=== PATIENT | female | born 1955 | race Caucasian/White ===

== ENCOUNTER 2021-02-02 08:03 | Day surgery (SDC) | payer OTHER, MEDICARE ==
[~2021-02-02 08:03] MED LIST: Lidocaine 1%/Sod Bicarbonate in NS 8.4% 1 ML Syringe IDERM PRN; Sodium Chloride 0.9% 10 ML Syringe FLUSH PRN
[2021-02-02] MEDS ORDERED: Lidocaine 1% 4 ML ONE (08:16)
[2021-02-02] MEDS ORDERED: fentaNYL 250 MCG/5 ML SDV ONE (08:16)
[2021-02-02] MEDS ORDERED: Ondansetron 4 MG/2 ML SDV ONE (08:16)
[2021-02-02] MEDS ORDERED: Rocuronium 50 MG/5 ML Vial ONE (08:16)
[2021-02-02] MEDS ORDERED: Dexamethasone 4 MG/ML 5 ML MDV ONE (08:16)
[2021-02-02] MEDS ORDERED: Midazolam 1 MG/ML 2 ML SDV ONE (08:16)
[2021-02-02] MEDS ORDERED: Propofol 200 MG/20 ML SDV ONE (08:16)
[2021-02-02] MEDS ORDERED: Ketorolac 30 MG/ML SDV ONE (08:17)
[2021-02-02] MEDS ORDERED: ceFAZolin 1 GM Vial ONE (08:24)
[2021-02-02] MEDS: Lactated Ringers 1,000 ML IV SCH ×2 (08:30→14:50)
--- NOTE | 2021-02-02 08:40 | PCM.PREANE ---
Preanesthetic Assessment - Procedure Proposed Procedure: tvh with a and p repair - Anesthesia/Transfusion/Family Hx Anesthesia History: Prior Anesthesia Without Reaction Family History of Anesthesia Reaction: No Transfusion History: No Prior Transfusion(s) - Review of Systems General: No Symptoms Pulmonary: Cough (always because of allergies) Cardiovascular: No Symptoms Gastrointestinal: No Symptoms Neurological: No Symptoms Other: Reports: Thyroid Problems - Physical Assessment NPO Status Date: 02/01/21 NPO Status Time: 19:00 Vital Signs: 110/76 75 97% 99.0 16 Height: 5 ft 9 in Weight: 73 kg ASA Class: 2 Mental Status: Alert & Oriented x3 Airway Class: Mallampati = 2 Dentition: Reports: Normal Dentition Thyro-Mental Finger Breadths: 3 Mouth Opening Finger Breadths: 3 ROM/Head Extension: Full Lungs: Clear to Auscultation, Normal Respiratory Effort Cardiovascular: Regular Rate, Regular Rhythm - Allergies Allergies/Adverse Reactions: Allergies Allergy/AdvReac Type Severity Reaction Status Date / Time No Known Allergies Allergy Verified 02/01/21 14:00 - Blood Blood Available: No - Acknowledgements Anesthesia Type Planned: General Anesthesia Pt an Appropriate Candidate for the Planned Anesthesia: Yes Alternatives and Risks of Anesthesia Discussed w Pt/Guardian: Yes Pt/Guardian Understands and Agrees with Anesthesia Plan: Yes PreAnesthesia Questionnaire - Past Health History Medical/Surgical History: Denies Medical/Surgical History HEENT History: Reports: Allergic Rhinitis, Other (See Below) Other HEENT History: TINNITUS Cardiovascular History: Reports: CAD, High Cholesterol, Other (See Below) Other Cardiovascular History: LEFT VENTRICULAR HYPERTROPHY Respiratory History: Reports: Other (See Below) Other Respiratory History: SNORING Gastrointestinal History: Reports: GERD Other Genitourinary History: COMPLETE UTERINE PROLAPSE, ABNORMAL UTERINE BLEEDING Musculoskeletal History: Reports: Osteoarthritis Neurological History: Reports: Headaches, Chronic, Migraines Psychiatric History: Reports: Anxiety Endocrine/Metabolic History: Reports: Hypothyroidism, Vitamin D Deficiency, Other (See Below) Other Endocrine/Metabolic History: HX. OF GRAVES DISEASE, ELEVATED A1C Oncologic (Cancer) History: Reports: None - Past Surgical History Cardiovascular Surgical History: Reports: None Musculoskeletal Surgical History: Reports: Other (See Below) Other Musculoskeletal Surgeries/Procedures:: FINGER DEFORMITY RIGHT HAND/PINKY FINGER SX - SUBSTANCE USE Tobacco Use Status *Q: Never Tobacco User Tobacco Use Within Last Twelve Months: No Second Hand Smoke Exposure: No Days Per Week of Alcohol Use: 0 Recreational Drug Use History: No - HOME MEDS Home Medications: Home Meds Levothyroxine [Synthroid] 100 mcg PO DAILY 11/13/14 [History] Cholecalciferol (Vitamin D3) [Vitamin D3] 2,000 unit PO DAILY 02/01/21 [History] Estrogens, Conjugated [Premarin Vaginal Crm] 1 gm .ROUTE ASDIRECTED 02/01/21 [History] Rosuvastatin Calcium 10 mg PO DAILY 02/01/21 [History] - CURRENT (IN HOUSE) MEDS Current Meds: Current Medications Lactated Ringer's (Ringers, Lactated) 1,000 mls @ 125 mls/hr IV ASDIRECTED NACHO Stop: 02/02/21 23:00 Lidocaine/Sodium Bicarbonate (Lidocaine 1%/Sod Bicarbonate In Ns 8.4% 1 Ml Syringe) 0.25 ml IDERM ONETIME PRN PRN Reason: Prior to IV Start Stop: 02/02/21 18:00 Sodium Chloride (Sodium Chloride 0.9% 10 Ml Syringe) 10 ml FLUSH ASDIRECTED PRN PRN Reason: Keep Vein Open Stop: 02/02/21 18:00 Discontinued Medications Cefazolin Sodium (Cefazolin 1 Gm Vial) Confirm Administered Dose 2 gm .ROUTE . STK-MED ONE Stop: 02/02/21 08:25 Dexamethasone (Dexamethasone 4 Mg/Ml 5 Ml Mdv) Confirm Administered Dose 20 mg .ROUTE .STK-MED ONE Stop: 02/02/21 08:17 Fentanyl (Fentanyl 250 Mcg/5 Ml Sdv) Confirm Administered Dose 250 mcg .ROUTE .STK-MED ONE Stop: 02/02/21 08:17 Lidocaine HCl (Xylocaine-Mpf 1%) Confirm Administered Dose 4 mls @ as directed .ROUTE .STK-MED ONE Stop: 02/02/21 08:17 Ketorolac Tromethamine (Ketorolac 30 Mg/Ml Sdv) Confirm Administered Dose 30 mg .ROUTE .STK-MED ONE Stop: 02/02/21 08:18 Midazolam HCl (Midazolam 1 Mg/Ml 2 Ml Sdv) Confirm Administered Dose 2 mg .ROUTE .STK-MED ONE Stop: 02/02/21 08:17 Ondansetron HCl (Ondansetron 4 Mg/2 Ml Sdv) Confirm Administered Dose 4 mg .ROUTE .STK-MED ONE Stop: 02/02/21 08:17 Propofol (Propofol 200 Mg/20 Ml Sdv) Confirm Administered Dose 200 mg .ROUTE .STK-MED ONE Stop: 02/02/21 08:17 Rocuronium [place] (Rocuronium 50 Mg/5 Ml Vial) Confirm Administered Dose 50 mg .ROUTE .STK-MED ONE Stop: 02/02/21 08:17
[2021-02-02] MEDS ORDERED: Lidocaine 1% with EPINEPHrine 1:100,000 10 ML MDV ONE (08:49)
[2021-02-02] MEDS ORDERED: Sodium Chloride 0.9% 50 ML SDV ONE (08:49)
[2021-02-02] MEDS ORDERED: diphenhydrAMINE 50 MG/ML SDV ONE (09:06)
[2021-02-02] MEDS ORDERED: Scopolamine 1.5 MG Transdermal Patch TOP ONE (09:30)
[2021-02-02] MEDS ORDERED: Lactated Ringers 1,000 ML ONE (10:07)
[2021-02-02] MEDS ORDERED: Ketamine 500 mg/10 ML MDV ONE (10:07)
[2021-02-02] MEDS ORDERED: Ondansetron 4 MG/2 ML SDV IVPUSH PRN ×2 (10:41→11:59)
[2021-02-02] MEDS ORDERED: fentaNYL 100 MCG/2 ML SDV IVPUSH PRN (10:41)
[2021-02-02] MEDS ORDERED: HYDROmorphone 0.5 MG/0.5 ML Syringe ONE (10:41)
[2021-02-02] MEDS ORDERED: HYDROmorphone 0.5 MG/0.5 ML Syringe IVPUSH PRN (10:41)
[2021-02-02] MEDS ORDERED: Acetaminophen/oxyCODONE 325-5 MG Tab PO PRN (11:59)
--- NOTE | 2021-02-02 12:09 | PCM.OPNOTE ---
- General Post-Op/Procedure Note Date of Surgery/Procedure: 02/02/21 Operative Procedure(s): Total vaginal hysterectomy with bilateral salpingo- oophorectomy, anterior and posterior vaginal repair with perineoplasty Findings: Patient has a grade 4 uterine descensus, grade 3 rectocele, grade 3 cystocele. Vaginal epithelium is quantified as consistent with chronic external exposure. Uterus is normal size. Ovaries were somewhat atrophic. Fallopian tubes were normal in appearance for age. Pre Op Diagnosis: 1. Grade 4 uterine prolapse. 2. Grade 3 cystocele. 3. Grade 3 rectocele Post-Op Diagnosis: Same Anesthesia Technique: General ET Tube Other Anesthesia Type: Lidocaine quarter percent with [id number] ml local Primary Surgeon: Man Dejesus Secondary Surgeon: Joshua Gongora Anesthesia Provider: No Schwartz Conveyor Attendant: Hailey Ortiz Reason Conveyor Attendant Was Necessary: Retraction, assistance, patient safety, quality of care. Pathology: Uterus, bilateral fallopian tubes and ovaries in one specimen container Fluid Replacement, Intraop: 1,300 EBL in mLs: 20 Complications: None Condition: Good Free Text/Narrative:: Surgery duration: 83 minutes Procedure: The patient was placed in supine position on the operating table. Patient was given 2 g of Ancef preoperatively for infection prophylaxis and had sequential compression stockings in place for DVT prophylaxis. General endotracheal anesthesia was accomplished. After positioning, and adequate prep and drape, the procedure was then performed. Sterile speculum was placed in the vagina and cervix was visualized. Cervix was injected with lidocaine quarter percent with epinephrine-20 mL used. A full circumference incision was made in the cervical epithelium. The bladder was pushed well back off cervix. Posterior cul-de-sac was then entered sharply without problems. Left uterosacral was crossclamped with a Enseal vessel closure system. The left uterosacral and then the right uterosacral ligament pedicles were developed using the Enseal system. The anterior cul-de-sac was then entered with guidance from finger placed around the top of the uterus into the anterior cul-de-sac. It was entered without problems and the uterine vasculature, cardinal ligament and broad ligament then developed using Enseal vessel closure system. The uterus was inverted at this time and upper broad ligament fallopian tube pedicles were crossclamped with José clamps. Specimen was totally removed. Both these pedicles were then secured with a José stitch of #1 Vicryl. It should be noted that the bilateral tubes and ovaries were removed. The patient was found to be hemostatically intact at this time. Attention was then turned towards the anterior and posterior vaginal repair with perineoplasty. Anterior vaginal repair was performed in a routine fashion. Patient has significant redundancy of tissue in the anterior fornix and the anterior vaginal wall. The edges of the epithelium at the vaginal cuff were grasped with 2 Allis clamps. The area of subepithelial tissue was infiltrated lidocaine quarter percent with epinephrine. The epithelium was then undermined to the area approximately 4 cm from the urethral meatus. The epithelium was then dissected off the underlying vesicovaginal support tissue. Approximately 7 trapezoidal shape sutures were then placed using 0 Monocryl to reapproximate the lateral support tissue midline and reduce the cystocele. Excess epithelium was then removed and epithelium was reapproximated using 4 short running segments of 3-0 Monocryl. The uterosacral nodes were previously identified and marked with a tag. These were then brought midline approximately 3 cm above the vaginal cuff opening and were approximated with a figure of 8 suture ligature for support of the vaginal cuff. The vaginal cuff was then closed. Attempt was made to incorporate the cuff into the uterosacral midline approximation. Rectocele was then performed. The uppermost portion of the rectocele was identified and was grasped midline with an Allis clamp. The introital area was grasped at approximately the 4:00 and 8:00 positions at the junction of the vaginal and vulvar epithelium. The area of epithelium was then infiltrated with lidocaine quarter percent with epinephrine. A orlin-shaped piece of epithelium was removed from the posterior introital and perineal area. The vaginal epithelium was then undermined superiorly to the top of the rectocele. Was then incised midline. With sharp and blunt dissection the epithelium was then dissected off of the underlying vesicovaginal fascia. At this point approximately 5 sutures of 0 Monocryl were placed to reapproximate the lateral supportive tissue midline and reduce the rectocele. The excess epithelium was then excised and the epithelium overlying the rectocele repair was then reapproximated with a running suture of 3-0 Monocryl. Perineoplasty was then performed with approximately 3 V-shaped stitches of 0 Monocryl in placed to reapproximate the lateral tissue midline, rebuild the perineum about 1 cm and the vagina approximately 1 cm. The epithelium of the introitus and perineal body was then reapproximated using 3-0 Monocryl in an episiotomy repair fashion. At this time sponge, instrument and needle counts were correct. The patient was returned to supine position and was discharged from the operating room in good condition.
--- NOTE | 2021-02-02 12:32 | PCM.POSTAN ---
POST ANESTHESIA ASSESSMENT - MENTAL STATUS Mental Status: Alert, Oriented - VITAL SIGNS Vital Signs: Last Vital Signs Temp 99.0 F 02/02/21 07:50 Pulse 75 02/02/21 07:50 Resp 16 02/02/21 07:50 BP 110/76 02/02/21 07:50 Pulse Ox 97 02/02/21 07:50 1216 121/68 98% 75 13 97.3 - RESPIRATORY Respiratory Status: Respiratory Rate WNL, Airway Patent, O2 Saturation Stable, Supplemental Oxygen - CARDIOVASCULAR CV Status: Pulse Rate WNL, Blood Pressure Stable - GASTROINTESTINAL GI Status: No Symptoms - PAIN Pain Score: 0 - POST OP HYDRATION Hydration Status: Adequate & Stable - OBSERVATIONS Free Text/Narrative:: rests. Head of bed up.
[2021-02-02] MEDS ORDERED: Ketorolac 30 MG/ML SDV IVPUSH SCH (14:15)
--- NOTE | 2021-02-02 14:32 | PCM48HPAN ---
Post Anesthesia Note - EVALUATION WITHIN 48HRS OF ANESTHETIC Vital Signs in Normal Range: Yes Patient Participated in Evaluation: Yes Respiratory Function Stable: Yes Airway Patent: Yes Cardiovascular Function Stable: Yes Hydration Status Stable: Yes Pain Control Satisfactory: Yes (still c/o pain, will continue on the floor) Nausea and Vomiting Control Satisfactory: Yes Mental Status Recovered: Yes Vital Signs: Last Vital Signs Temp 97.0 F 02/02/21 13:30 Pulse 65 02/02/21 13:30 Resp 15 02/02/21 13:30 BP 110/75 02/02/21 13:30 Pulse Ox 95 02/02/21 13:30 - COMMENTS/OBSERVATIONS Free Text/Narrative:: Patient is being transferred to Medical Surgical floor for extended recovery. Additional paint medications may be given PRN.
[2021-02-02 16:31] VITALS: BP 102/73; PULSE 81
[2021-02-02] MEDS ORDERED: Ibuprofen 600 MG Tab PO PRN (20:00)
== END 2021-02-02 16:15 | disposition home or self-care (01) ==
LOC: JD.SDS 08:03
PROVIDERS: ATTEND Obstetrics & Gynecology
DX: D27.1 Benign neoplasm of left ovary (principal); D27.0 Benign neoplasm of right ovary; N80.0 Endometriosis of uterus; N81.3 Complete uterovaginal prolapse; N84.0 Polyp of corpus uteri; N83.8 Other noninflammatory disorders of ovary, fallopian tube and broad ligament; I25.10 Atherosclerotic heart disease of native coronary artery without angina pectoris; F41.9 Anxiety disorder, unspecified; E78.5 Hyperlipidemia, unspecified; E03.9 Hypothyroidism, unspecified; M81.0 Age-related osteoporosis without current pathological fracture; Z79.899 Other long term (current) drug therapy
CPT/HCPCS: 56810; 57260; 58262; 88307; A9270; J0690; J1100; J1170; J1200; J1885; J2250; J2405; J2704; J2710; J3010; J7120; 00944